=== PATIENT | male | born 1980 | race American Indian/Alaskan Native ===

== ENCOUNTER 2017-03-17 08:42 | Emergency (ER) | payer SELFPAY ==
--- NOTE | 2017-03-17 09:41 | Emergency Department Report ---
Chief Complaint: Sore Throat Stated Complaint: SORE THROAT Time Seen by Provider: 03/17/17 09:38 - HPI History of Present Illness: PT states Thursday night, the left side of his throat felt irritated and swollen. PT states the pain is dull and only on the left side. PT states he might have swollen glands - ROS Review of Systems: - cp - sob -f/c - Exam Vital Signs: Vital Signs 03/17/17 08:47 Temperature 98.3 F Pulse Rate 79 Respiratory 18 Rate Blood Pressure 192/130 O2 Sat by Pulse 96 Oximetry Physical Exam: PT looks well, non toxic no exudative pharyngitis noted no cervical adenopathy MSE screening note: Focused history and physical exam performed. Due to findings the following was ordered: ekg, labs ED Disposition for MSE Condition: Stable Referrals: PRIMARY CARE [Primary Care Provider] - 3-5 Days
[2017-03-17 10:11] LABS: Basophils % (Auto) 0.8 % (0.0-1.8); Eosinophils % (Auto) 2.9 % (0.0-4.3); Hematocrit 42.1 % (35.5-45.6); Hemoglobin 13.7 gm/dl (11.8-15.2); Mean Corpuscular HGB Conc 33 % (32-34); Mean Corpuscular Volume 72 fl (84-94); Platelet Count 142 K/mm3 (140-440); Red Blood Count 5.83 M/mm3 (3.65-5.03); Red Cell Distribution Width 15.5 % (13.2-15.2); White Blood Count 6.5 K/mm3 (4.5-11.0)
[2017-03-17 10:12] LABS: Mean Corpuscular Hemoglobin 24 pg (28-32)
--- NOTE | 2017-03-17 10:21 | XRay Report ---
CHEST 2 VIEWS INDICATION: Hypertension. COMPARISON: None similar at this institution. FINDINGS: PA and lateral chest radiographs demonstrate normal cardiomediastinal silhouette. Subtle haziness/obscuration of the right cardiophrenic angle presumed related to a fat pad rather than a subtle infiltrate, not substantiated on the lateral view. Clear remainder lungs. Unremarkable bones. CONCLUSION: No definite acute chest process, as described. Correlation with prior chest imaging would also be helpful, if available. Thank you for the opportunity to participate in this patient's care.
[2017-03-17 10:22] LABS: Anion Gap 18 mmol/L; BUN/Creatinine Ratio 15; Blood Urea Nitrogen 16 mg/dL (9-20); Calcium 8.4 mg/dL (8.4-10.2); Carbon Dioxide 24 mmol/L (22-30); Chloride 103.1 mmol/L (98-107); Glucose 106 mg/dL (75-100); Potassium 3.7 mmol/L (3.6-5.0); Sodium 141 mmol/L (137-145)
[2017-03-17] MEDS ORDERED: CATAPRES PO ONE (11:00)
[2017-03-17] MEDS ORDERED: CATAPRES ONE (11:01)
[2017-03-17] MEDS ORDERED: MOTRIN PO ONE (11:05)
[2017-03-17] MEDS ORDERED: LIDOCAINE VISCOUS 2% PO ONE (11:05)
--- NOTE | 2017-03-17 11:08 | Emergency Department Report ---
HPI - General Chief Complaint: Sore Throat Time Seen by Provider: 03/17/17 09:38 - HPI HPI: Room 38 The patient is a 36-year-old male presenting with a chief complaint of sore throat. The patient states for the past 3 days she has had constant pain in the left throat that worsens when he swallows. Patient denies any history of fever or cough. Patient currently gets his pain score of 3.5/10 Location: Throat Duration: 3 days Quality: Pain Severity: 3.5/10 Modifying factors: [see above] Context: [see above] Mode of transportation: The patient drove himself to the emergency department ED Past Medical Hx - Past Medical History Previous Medical History?: Yes Hx Hypertension: Yes (last 5 years) - Surgical History Past Surgical History?: No - Family History Family history: no significant - Social History Smoking Status: Never Smoker Substance Use Type: None - Medications Home Medications: Home Medications Medication Instructions Recorded Confirmed Last Taken Type Amoxicillin 500 mg PO BID #14 capsule 03/17/17 Unknown Rx HYDROcodone/APAP 5-325 [[place] 1 - 2 each PO Q6HR PRN #10 tablet 03/17/17 Unknown Rx 5/325] Ibuprofen [Motrin 800 MG tab] 800 mg PO Q8HR PRN #20 tablet 03/17/17 Unknown Rx amLODIPine [Norvasc] 5 mg PO DAILY #90 tab 03/17/17 Unknown Rx ED Review of Systems ROS: Stated complaint: SORE THROAT Other details as noted in HPI Comment: All other systems reviewed and negative Constitutional: denies: chills, fever Eyes: denies: eye pain, eye discharge, vision change ENT: throat pain Respiratory: denies: cough, shortness of breath, wheezing Cardiovascular: denies: chest pain, palpitations Endocrine: no symptoms reported Gastrointestinal: denies: abdominal pain, nausea, diarrhea Genitourinary: denies: urgency, dysuria Musculoskeletal: denies: back pain, joint swelling, arthralgia Skin: denies: rash, lesions Neurological: denies: headache, weakness, paresthesias Psychiatric: denies: anxiety, depression Hematological/Lymphatic: denies: easy bleeding, easy bruising Physical Exam - Physical Exam Vital Signs: Vital Signs 03/17/17 03/17/17 08:47 10:55 Temperature 98.3 F 97.9 F Pulse Rate 79 77 Respiratory 18 18 Rate Blood Pressure 192/130 192/122 O2 Sat by Pulse 96 100 Oximetry Physical Exam: GENERAL: The patient is well-developed well-nourished male lying on stretcher not appearing to be in acute distress. [] HEENT: Normocephalic. Atraumatic. Extraocular motions are intact. Patient has moist mucous membranes. Oropharynx clear, uvula midline NECK: Supple. There is no stridor. Tender lymphadenopathy left neck CHEST/LUNGS: There is no respiratory distress noted. HEART/CARDIOVASCULAR: Regular. There is no tachycardia. There is no gallop rub or murmur. ABDOMEN: Abdomen is soft, nontender. Patient has normal bowel sounds. There is no abdominal distention. SKIN: There is no rash. There is no diaphoresis. NEURO: The patient is awake, alert, and oriented. The patient is cooperative. The patient has normal speech MUSCULOSKELETAL: There is no evidence of acute injury. ED Course Vital Signs 03/17/17 03/17/17 08:47 10:55 Temperature 98.3 F 97.9 F Pulse Rate 79 77 Respiratory 18 18 Rate Blood Pressure 192/130 192/122 O2 Sat by Pulse 96 100 Oximetry ED Medical Decision Making - Lab Data Result diagrams: 03/17/17 09:56 03/17/17 09:56 Laboratory Tests 03/17/17 03/17/17 09:56 09:56 WBC 6.5 RBC 5.83 H Hgb 13.7 Hct 42.1 MCV 72 L MCH 24 L MCHC 33 RDW 15.5 H Plt Count 142 Lymph % (Auto) 28.7 [place] % (Auto) 4.9 Eos % (Auto) 2.9 Baso % (Auto) 0.8 Lymph # 1.9 [place] # 0.3 Eos # 0.2 Baso # 0.1 Seg Neutrophils % 62.7 Seg Neutrophils # 4.1 Sodium 141 Potassium 3.7 Chloride 103.1 Carbon Dioxide 24 Anion Gap 18 BUN 16 Creatinine 1.1 Estimated GFR > 60 BUN/Creatinine Ratio 15 Glucose 106 H Calcium 8.4 Troponin T < 0.010 - EKG Data -: EKG Interpreted by Ut EKG shows normal: sinus rhythm Rate: normal - EKG Data When compared to previous EKG there are: previous EKG unavailable Interpretation: nonspecific ST-T wave nae (T-wave inversions inferolaterally) - Radiology Data Radiology results: image reviewed (chest x-ray, lateral soft tissue neck x-ray) interpreted by me: Chest x-ray-no focal infiltrates, no pneumothorax Lateral soft tissue neck x-ray-no prevertebral swelling, no evidence of epiglottitis - Differential Diagnosis pharyngitis, retropharyngeal abscess, epiglottitis Critical care attestation.: If time is entered above; I have spent that time in minutes in the direct care of this critically ill patient, excluding procedure time. ED Disposition Clinical Impression: Sore throat, Pharyngitis, Hypertension Disposition: TO HOME OR SELFCARE Is pt being admited?: No Does the pt Need Aspirin: No Condition: Stable Instructions: Pharyngitis (ED), Hypertension (ED) Additional Instructions: Return to the emergency department immediately should you develop worsening symptoms, fever, inability to tolerate food or liquid or any other concerns. Prescriptions: amLODIPine [Norvasc] 5 mg PO DAILY #90 tab Amoxicillin 500 mg PO BID #14 capsule HYDROcodone/APAP 5-325 [[place] 5/325] 1 - 2 each PO Q6HR PRN #10 tablet PRN Reason: Pain Ibuprofen [Motrin 800 MG tab] 800 mg PO Q8HR PRN #20 tablet PRN Reason: Pain Referrals: [facility] [Outside] - 3-5 Days TESHA SKAGGS MD [Staff Physician] - 3-5 Days (Dr. Skaggs is a primary physician. Please follow up with him to be established as a patient) ELLEN CORTEZ MD [Staff Physician] - 3-5 Days (Dr. Cortez is an color adviser (ear nose and throat doctor). Please follow up with her for further evaluation) Time of Disposition: 11:43
--- NOTE | 2017-03-17 11:57 | XRay Report ---
Soft tissue neck 2 views: History: Sore throat. Findings: The nasopharyngeal region is not optimally visualized. This prevertebral soft tissue appears normal. The laryngeal and tracheal column grossly appears unremarkable. Impression: No abnormality noted in the visualized portion of soft tissue of neck.
[2017-03-17 12:12] VITALS: BP 175/96
== END 2017-03-17 11:53 | disposition home or self-care (01) ==
LOC: ED 08:42
DX: J02.9 Acute pharyngitis, unspecified (principal); I10 Essential (primary) hypertension
CPT/HCPCS: 36415; 70360; 71020; 80048; 84484; 85025; 93005; 93010; 99284